=== PATIENT | male | born 1975 | race Caucasian/White ===

== ENCOUNTER 2019-04-18 10:06 | Emergency (ER) | payer MEDICARE, MEDICAID, SELFPAY ==
[2019-04-18 10:12] VITALS: BP 153/102; PULSE 112; RESP 15; TEMP 36.8; O2SAT 98; BMI 26.6
--- NOTE | 2019-04-18 10:40 | ED.VIS.GEN ---
History of Present Illness Chief Complaint: Diarrhea Informant: Patient Onset: Days Maximum Severity: Mild Narrative: Patient basically indicates he has no way home and does not have access to his medications currently as those medications are at his home He has a history of behavioral health disorder he is on multiple medications including Seroquel Lexapro and gabapentin he sees providers and psychologist psychiatrist in the [place] area, indicates he was arrested he was put into the [facility] system facility discharge this morning indicating he did not get access to the medications he had with him when he was taken into custody, was not given access to his wallet or other belongings and he was simply brought to the hospital. He indicates he has not had his medications for 3 days even though he had his medications with him when he was taken into custody. He denies being homicidal or suicidal simply states he needs his medications and help getting home Past Medical History - Allergies and Home Meds Allergies/Adverse Reactions: Allergies Penicillins [PCN] Allergy (Verified 04/18/19 10:07) Rash Past Medical History: - - Behavioral health disorder as above Smoking Status: Current some day smoker Review of Systems General: Reports: - - Anxiety and occasional diarrhea. Denies: Chills, Fever, Sweats Eyes: Denies: Visual changes - bilaterally, Diplopia ENT: Denies: Rhinorrhea, Sore throat Cardiovascular: Denies: Chest pain, Palpitations Respiratory: Denies: Dyspnea, Cough, Dyspnea on exertion Gastrointestinal: Denies: Abdominal pain, Nausea, Vomiting, Diarrhea, Melena, Hematochezia Genitourinary: Denies: Dysuria, Hematuria, Frequency Musculoskeletal: Denies: Back pain, Extremity Pain Skin: Denies: Rash, Wounds Neurological: Denies: Headache, Weakness, Numbness Physical Exam Vital Signs/Narrative: Vital Signs Temp Pulse Resp BP Pulse Ox 04/18/19 10:12 98.3 F 112 H 15 153/102 H 98 General: Well nourished, Well developed, No Acute Distress Head: Normocephalic, Atraumatic Eyes: Perrl, EOMI ENT: Moist mucous membranes, No rhinorrhea Neck: Supple, Nontender Cardiovascular: Regular rate, Regular rhythm, No murmurs Respiratory: No distress, CTA bilaterally, Chest nontender Abdomen: Soft, Nontender, Nondistended, Normal bowel sounds Back: Nontender, Normal Inspection Extremities: Nontender, No edema Skin: Normal color, No rash Neurological: Alert, Oriented x3, Cranial nerves II-XII grossly intact, Normal Strength, Normal Sensation Psychological: Normal affect, Normal Mood Diagnostic/Tx/Re-eval - Medical Decision Making The patient clinically looks well he is in no distress his vital signs are unremarkable we will provide him a dose of some of his meds including the Seroquel Lexapro and gabapentin that he is due for he assures us he has access to his medications at home and we have asked social science manager to see him to see if they could arrange for his transportation needs as he reports no one can pick him up Home stable Final impression anxiety disorder with exacerbation, lack of transportation ED Disposition - Plan for ED Patient: Diagnosis: Anxiety disorder Instructions: DIARRHEA, Unk Cause (Adult) Report Pendg Additional Instructions: Follow-up with your outpatient providers
[2019-04-18] MEDS: Gabapentin 400 MG Capsule PO (11:00)
[2019-04-18] MEDS: QUEtiapine 25 MG Tablet 50 MG PO (11:00)
[2019-04-18] MEDS: Escitalopram Oxalate 20 MG Tablet PO (11:00)
--- NOTE | 2019-04-18 13:15 | CM.ED ---
Social Work Consult: Transportation Informant: Dr. Swartz Met with patient in room. Introduced self as well as director social role. Patient agreeable to speak with this director social. Patient stating to have been released from intermediate this morning and to have no ride home. Patient stating to be at the hospital to get a ride home. Educated patient that the ER is not responsible for providing transportation for patient to home. Patient becoming frustrated with this information. This director social inquiring if there is anyone that this director social could call to get a ride for patient. Patient stating patient sister, Maricruz, . Patient stating to not have a phone or wallet (I.D.). Patient stating to have left all belonging at home prior to going into intermediate. Telephone call to [facility], there are no openings today. Telephone call to Maricruz, voicemail left. Will continue to wait return phone call from Maricruz. Ac VAZQUEZ, HIRO
--- NOTE | 2019-04-18 14:36 | CM.ED ---
Social Work Collaborating with licensed master social worker, Raven Perez on case. Raven Perez recommending contacting the [facility], with patient permission to see if there is any printed circuit boards contact printer on file. Met with patient in room. Patient agreeable to this social services analyst contacting the [facility]. Telephone call to [facility], after multiple attempts was unable to speak with anyone. Collaborating with HROJose. Jose Muhammad able to have [place] police check patient home for possible person to come and pick patient up. During this, patient son called into the ED and is reporting to be able to pay a taxi for patient to get home. Patient provided with son contact information and a taxi was set up for patient. No further needs arise at this time. Ac VAZQUEZ, HIRO
== END 2019-04-18 15:08 | disposition home or self-care (01) ==
PROVIDERS: Emergency Provider Emergency Medicine
DX: F41.9 Anxiety disorder, unspecified (principal); Z72.0 Tobacco use
CPT/HCPCS: 99285